=== PATIENT | male | born 1995 | race Caucasian/White ===

== ENCOUNTER 2020-01-20 11:59 | Emergency (ER) | payer SELFPAY ==
[~2020-01-20] VITALS: Ht 177.8 cm; Wt 93.0 kg
[2020-01-20 12:07] VITALS: BP 119/62
--- NOTE | 2020-01-20 12:15 | NUR ---
AT BEDSIDE FOR EVAL.
--- NOTE | 2020-01-20 12:52 | NUR ---
Patient discharged to home in stable condition. Written and verbal after care instructions given. Patient verbalizes understanding of instruction.
== END 2020-01-20 12:53 | disposition home or self-care (01) ==
LOC: ER 12:03
DX: L03.012 Cellulitis of left finger (principal); R59.0 Localized enlarged lymph nodes